=== PATIENT | female | born 1990 | race African-American/Black ===

== ENCOUNTER 2020-05-01 11:20 | Inpatient (IN) | payer OTHER ==
--- OUTSIDE RECORDS SUMMARY | 2020-05-01 11:51 | XMS ---
:1990 [facility] Providers Name Role Phone Edelmira Webster MD Unavailable Unavailable Tyesha Webster MD Unavailable Unavailable Tyesha Webster MD Unavailable Unavailable Tyesha Webster MD Unavailable Unavailable Tyesha Webster MD Unavailable Unavailable Tyesha Webster MD Unavailable Unavailable Koci Unavailable Unavailable Tyesha Webster MD Unavailable Unavailable Tyesha Webster MD Unavailable Unavailable Tyesha Webster MD Unavailable Unavailable Tyesha Webster MD Unavailable Unavailable Tyesha Webster MD Unavailable Unavailable Tyesha Webster MD Unavailable Unavailable MD Jordyn Unavailable Unavailable MD Jordyn Unavailable Unavailable MD Jordyn Unavailable Unavailable MD Jordyn Unavailable Unavailable MD Jordyn Unavailable Unavailable Re-disclosure Warning The records that you are about to access may contain information from federally- assisted alcohol or drug abuse programs. If such information is present, then the following federally mandated warning applies: This information has been disclosed to you from records protected by federal confidentiality rules (42 CFR part 2). The federal rules prohibit you from making any further disclosure of this information unless further disclosure is expressly permitted by the written consent of the person to whom it pertains or as otherwise permitted by 42 CFR part 2. A general authorization for the release of medical or other information is NOT sufficient for this purpose. The Federal rules restrict any use of the information to criminally investigate or prosecute any alcohol or drug abuse patient.The records that you are about to access may contain highly sensitive health information, the redisclosure of which is protected by Article 27-F of the [facility] Public Health law. If you continue you may haveaccess to information: Regarding HIV / AIDS; Provided by facilities licensed or operated by the [facility] Office of Mental Health; or Provided by the [facility] Office for People With Developmental Disabilities. If such information is present, then the following [facility] mandated warning applies: This information has been disclosed to you from confidential records which are protected by state law. State law prohibits you from making any further disclosure of this information without the specific written consent of the person to whom it pertains, or as otherwise permitted by law. Any unauthorized further disclosure in violation of state law may result in a fine or half-way sentence or both. A general authorization for the release of medical or other information is NOT sufficient authorization for further disclosure. Encounters Encounter Providers Location Date Indications Data Source(s ) Outpatient Attender: Edelmira BOYCE 04/28/2020 RICHARD Webster MD 01:58:00 PM Hospital EDT Outpatient Attender: Edelmira BOYCE 04/18/2020 RICHARD Webster MD 03:19:33 PM Hospital EDT - 04/21/2020 11:59:00 PM EDT Patient discharged. Outpatient 04/16/2020 11:47:00 [facility] ([facility]) Outpatient 04/15/2020 10:32:00 [facility] ([facility]) Outpatient Attender: Edelmira BOYCE 04/11/2020 01:43:15 RICHARD Webster MD PM EDT - 04/14/2020 [facility] 11:59:00 PM EDT Patient discharged. Outpatient Attender: Edelmira PABLOMATTRI 2020 02:25:00 RICHARD Webster MD PM EDT - 2020 [facility] 11:59:00 PM EDT Patient discharged. Outpatient Attender: Edelmira CostaLABCLNMV 04/04/2020 03:05:55 [facility] Colton Webster MD PM EDT - 2020 [facility] 11:59:00 PM EDT Patient discharged. Outpatient Attender: Edelmira ICU-MATTRI 03/28/2020 03:20:34 RICHARD Webster MD PM EDT - 04/01/2020 [facility] 11:59:00 PM EDT Patient discharged. Outpatient 03/28/2020 10:00:00 [facility] 03/27/2020 11:49:00 [facility] ([facility]) Outpatient Attender: Terese ICU-MATTRDedra 03/25/2020 02:49:00 M GEMMA Chung KociAttender: Edelmira PM EDT - 03/25/2020 [facility] Darin LOCKETT 11:59:00 PM EDT Patient discharged. Outpatient Attender: Edelmira DE ANDA CL 03/14/2020 11:07:08 RICHARD Webster MD AM EDT - 03/17/2020 [facility] 11:59:00 PM EDT Patient discharged. Outpatient Attender: Edelmira BOYCE 03/03/2020 03:12:00 RICHARD Webster MD PM EDT - 03/03/2020 [facility] 11:59:00 PM EDT Patient discharged. Outpatient Attender: Edelmira BOYCE 02/18/2020 02:08:00 RICHARD Webster MD PM EDT - 02/18/2020 [facility] 11:59:00 PM EDT Patient discharged. Outpatient Attender: Edelmira JI 01/11/2020 02:27:00 RICHARD Webster MD PM EDT - 01/14/2020 [facility] 11:59:00 PM EDT Patient discharged. Outpatient Attender: Edelmira DE OLIVEIRA-VICKI 12/14/2019 06:16:00 RICHARD Webster MD PM EDT - 12/18/2019 [facility] 11:59:00 PM EDT Patient discharged. Outpatient Attender: Edelmira CostaLAB 12/11/2019 02:56:00 PM RICHARD Webster MDReferrer: EDT [facility] Edelmira Webster MD Admission cancelled. Disregard status an d admitted date. Outpatient Attender: Edelmira JI 11/19/2019 03:16:00 RICHARD Webster MD PM EDT - 11/19/2019 [facility] 11:59:00 PM EDT Patient discharged. Outpatient Attender: Edelmira DE OLIVEIRA-ANTE PAR 10/25/2019 08:43:00 RICHARD Webster MD AM EDT - 10/25/2019 [facility] 11:59:00 PM EDT Patient discharged. Outpatient Attender: Edelmira CostaOBGYN CL 10/01/2019 03:37:00 RICHARD Webster MD PM EDT - 10/01/2019 [facility] 11:59:00 PM EDT Patient discharged. Outpatient Attender: Edelmira CostaRADCLNMV 09/17/2019 10:51:00 RICHARD Webster MD AM EST - 09/17/2019 [facility] 11:59:00 PM EST Patient discharged. Outpatient Attender: Juan YENNIFER-OCCP HL 08/07/2019 03:35:00 RICHARD Cobb MD PM EST - 08/07/2019 Hos pital 11:59:00 PM EST Patient discharged. Medications Medication Brand Start Product Dose Route Administrative Pharmacy [facility] Indications Reaction Description Data Name Date Form Instructions Instructions Source(s) Docusate Colace [id number] active [facility] Sodium 100 100 mg 2019 {cap( Health MG Oral oral 03:36: s)} System Capsule capsul 38 PM [Colace] e EDT Colace 100 mg oral capsule Medication should be taken with plenty o f water. ferrous FeroSul 325 04/14/2020 1 {tab(s)} K72894 active FeroSul [facility] sulfate 325 mg (65 mg 03:36:16 PM Health MG Oral elemental EDT System Tablet iron) oral FeroSul 325 tablet mg (65 mg elemental iron) oral tablet Check with your doctor before becoming p regnant.Do not chew, break, or crush.May discolor urine or feces. Trevor [id number] 10/01/2019 1 {tab(s)} F40824 active Classic [facility] 04:09:01 PM Health oral EDT System tablet May discolor urine or feces.Take with fo od or milk. Trevor [id number] 10/01/2019 1 {tab(s)} O85261 active Classic [facility] 04:09:01 PM Health oral EDT System tablet May discolor urine or feces.Take with fo od or milk. Insurance Providers Payer name Policy type / Policy ID Covered Covered alliance party's Policy Plan Coverage type alliance party ID relationship to Diaz Information diaz [facility] [id number] - [id number] [facility] [id number] Commercial [id number] 1 [id number] Occupational Commercial [id number] 1 [id number] Health NR [facility] 1199 Commercial [id number] Occupational Commercial [id number] 1 [id number] Health NR Fin Assist Fee Self Pay 1 Code 3 Fin Assist Fee Self Pay 1 Code 3 Self Pay Self Pay SELF PAY 1 SELF PAY Self Pay Self Pay SELF PAY 1 SELF PAY Problems, Conditions, and Diagnoses Code Display Name Description Problem Type Effective Data Dates Source(s) Z34.90 Encounter for Diagnosis 04/28/2020 [facility] supervision of 01:58:00 PM [facility] , unspecified, unspecified trimester Z34.93 Encounter for Encounter for Diagnosis 04/21/2020 [facility] supervision of supervision of normal 03:27:00 [facility] normal in third EDT Hospit al , trimester unspecified, third trimester Z33.1 state, Fewer than 24 weeks Diagnosis 04/14/2020 [facility] incidental gestation of 03:08:00 PM [facility] O43.899 Other placental Abnormal placenta, Diagnosis 2020 HS - New disorders, antepartum 02:25:[address] [facility] trimester Z3A.37 37 weeks 37 weeks gestation of Diagnosis 2020 [facility] gestation of 02:25:00 PM [facility] O35.8XX0 Maternal care Abnormal Diagnosis 04/01/2020 [facility] - N ew for other echocardiography 02:32:00 PM Linda e (suspected) affecting antepartum EDT Hos pital care of mother abnormality and damage, not applicable or unspecified O36.93X0 Maternal care and placental Diagnosis 04/01/2020 S - New for problem affecting 02:32:00 PM [place] le problem, management of mother EDT Hosp ital unspecified, in third trimester third trimester, not applicable or unspecified 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.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 S - New for (suspected) fetus affecting 02:32:00 PM Shahbaz helchance chromosomal management of mother EDT Hos pital abnormality in fetus, not applicable or unspecified Z3A.35 35 weeks 35 weeks gestation of Diagnosis 03/25/2020 S - New gestation of 02:49:00 PM [place] [facility] Z3A.21 21 weeks 21 weeks gestation of Diagnosis 12/18/2019 S - New gestation of 01:16:00 PM [place] [facility] Z36.89 Encounter for Encounter for routine Diagnosis 10/25/2019 [facility] - New other specified ultrasound 08:43:00 AM [facility] EDT [facility] screening Z34.91 Encounter for Encounter for Diagnosis 09/17/2019 S - [place] unt supervision of supervision of normal 10:51:00 A [facility] [place] normal in it al , trimester unspecified, first trimester Z3A.08 8 weeks 8 weeks gestation of Diagnosis 09/17/2019 S - [place] gestation of 10:51:00 AM [facility] Surgeries/Procedures Procedure Description Date Indications Data Source(s) Venipuncture 2020 [facility] 11:58:59 AM EDT System - 2020 01:00:31 PM EDT Hepatitis B Surface 2020 [facility] Health Antigen Neut 11:58:59 AM EDT System - 2020 12:07:24 PM EDT Hepatitis B surface 2020 [facility] antigen level 11:58:00 AM EDT System (procedure) - 2020 12:00:00 PM EDT Chlamydia 2020 [facility] Trachomatis/Neisseria 11:25:00 AM EDT Sys tem Gonorrhea RNA,TMA - 2020 11:27:00 AM EDT Venipuncture 01/15/2020 [facility] 12:16:06 PM EDT System - 01/15/2020 02:00:11 PM EDT Venipuncture 12/11/2019 [facility] 03:23:48 PM EDT System - 12/11/2019 05:00:13 PM EDT Alpha Fetoprotein, 12/11/2019 [facility] Maternal Triple 03:23:48 PM EDT System - 12/11/2019 03:25:40 PM EDT zzAlpha Fetoprotein, 12/11/2019 [facility] Maternal Serum 03:23:00 PM EDT System - 12/11/2019 03:26:00 PM EDT US OB 1st Trimester 09/18/2019 [facility] (less than 14 weeks) US 03:20:00 PM EST S ystem OB 1st Trimester (less - 09/18/2019 than 14 weeks) 03:20:00 PM EST Venipuncture 09/17/2019 [facility]al th 12:00:20 PM EST System - 09/17/2019 01:00:21 PM EST Cystic Fibrosis Screen 09/17/2019 [facility] 12:00:20 PM EST System - 09/17/2019 12:02:00 PM EST Aerobic Culture, Urine 09/17/2019 [facility] 11:32:00 AM EST System - 09/17/2019 11:32:00 AM EST Results ID Date Data Source [id number] 04/27/2020 02:06:30 AM EDT [facility] System Name Value Range Interpretation Description Data Sup porting Code Source(s) Document(s ) Leukocytes 5.5 Normal (applies WBC Count [facility] [#/volume] in {10^3_uL to non-numeric Health Unspecified } results) System specimen by Automated count Erythrocytes 4.24 Normal (applies RBC Count [facility] [#/volume] in {10^6_uL to non-numeric Health Blood by } results) System Automated count Erythrocyte mean 86.8 fl Normal (applies MCV [facility] corpuscular to non-numeric Health volume [Entitic results) System volume] by Automated count Hemoglobin 11.4 Below low normal Hemoglobin [facility] [Mass/volume] in {gm/dL} Health Blood System Erythrocyte mean 26.9 pg Below low normal MCH [facility] corpuscular Health hemoglobin System [Entitic mass] by Automated count Hematocrit 36.8 % Below low normal Hematocrit [facility] [Volume Health Fraction] of System Blood Erythrocyte mean 31.0 Normal (applies MCHC [facility] corpuscular {gm/dL} to non-numeric Health hemoglobin results) System concentration [Mass/volume] by Automated count Platelets 259 Normal (applies Platelet [facility] [#/volume] in {10^3_uL to non-numeric Count Health Plasma by } results) System Automated count Erythrocyte 13.2 % Normal (applies RDW-CV [facility] distribution to non-numeric Health width [Entitic results) System volume] by Automated count NRBC# 0.00 Normal (applies NRBC # [facility] {10^3_uL to non-numeric Health } results) System Platelet mean 10.7 fl Normal (applies MPV [facility] volume [Entitic to non-numeric Health volume] in Blood results) System by Automated count Nucleated 0.0 Normal (applies NRBC % [facility] erythrocytes {/100_WB to non-numeric Health [#/volume] in C} results) System Body fluid ID Date Data Source [id number] 04/27/2020 02:06:30 AM EDT [facility] Name Value Range Interpretation Code Description Data Karishma rce(s) Supporting Document(s ) HbA1C 5.1 % Normal (applies to HbA1C [facility] Health non-numeric results) System ID Date Data Source [id number] 04/27/2020 02:06:30 AM EDT [facility] Name Value Range Interpretation Description Data Sup porting Code Source(s) Document(s ) Cholesterol 124 Normal (applies Cholesterol, [facility] [Mass/volume] mg/dl to non-numeric Serum Health Syst em in Serum or results) Plasma <200 mg/ft=xflozevxy451-170 mg/dl=border line>240 mg/dl=elevated Cholesterol in HDL 51.0 mg/dL Normal (applies HDL Cholestero l, [facility] [Mass/volume] in to non-numeric Serum Health S yste Serum or Plasma results) Triglyceride 50 mg/dl Normal (applies Triglycerides, [facility] [Mass/volume] in to non-numeric Serum Health S yste Serum or Plasma results) Optimal = < 100 mg/dLBoderline High = 15 0 - 199 mg/dLHigh = 200 - 499 mg/dLVery High = > 500 mg/dL CHDRisk 2.43 Normal (applies to non-numeric CHD Risk [facility] results) Lowest <2.9Low 3.0 - 3.6Moderate 3 .7 - 4.6High 4.7 - 5.6Highest >=5.7 Cholesterol in VLDL 10 Normal (applies to VLDL, Serum [facility] [Mass/volume] in non-numeric System Serum or Plasma results) Cholesterol in LDL 63 mg/dL Normal (applies to Low Density [facility] [Mass/volume] in non-numeric Lipoprotein, System Serum or Plasma results) Calculated OPTIMAL: LESS THAN 100 mg/dLNEAR OPTIMAL : 100 - 129 mg/dLBODERLINE HIGH: 130 - 150 mg/dL ID Date Data Source [id number] 04/27/2020 02:06:30 AM EDT [facility] Name Value Range Interpretation Description Data Sup porting Code Source(s) Document(s ) Bilirubin.total 0.5 Normal (applies Bilirubin, [facility] [Mass/volume] in mg/dl to non-numeric Serum Total Health Serum or Plasma results) System Albumin 4.4 Normal (applies Albumin, [facility] [Mass/volume] in {gm/dl} to non-numeric Serum Health Serum or Plasma results) System Aspartate 12 Normal (applies Aspartate [facility] aminotransferase {IU/L} to non-numeric Transaminase, Heal th [Enzymatic results) Serum System activity/volume] in Serum or Plasma by With P-5'-P Alanine 6 Below low normal Alanine [facility] aminotransferase {IU/L} Aminotransfer Health [Enzymatic ase, Serum System activity/volume] in Serum or Plasma TotalProtein 7.0 Normal (applies Total Protein [facility] mg/dl to non-numeric Health results) System DirectBilirubin 0.1 Normal (applies Direct [facility] mg/dl to non-numeric Bilirubin Health results) System Alkaline 55 Normal (applies Alkaline [facility] phosphatase {IU/L} to non-numeric Phosphatase, Health isoenzymes results) Serum System [Enzymatic activity/volume] in Serum or Plasma by Heat stability ID Date Data Source [id number] 04/27/2020 02:06:30 AM EDT [facility] Name Value Range Interpretation Description Data Sup porting Code Source(s) Document(s ) Potassium 4.1 Normal (applies Potassium, [facility] [Mass/volume] mmol/L to non-numeric Serum Health Syst em in Serum or results) Plasma Sodium 139 Normal (applies Sodium, Serum [facility] [Moles/volume mmol/L to non-numeric Health Syst em ] in Serum or results) Plasma Chloride 104 Normal (applies Chloride, [facility] [Moles/volume mmol/L to non-numeric Serum Health Syst em ] in Serum or results) Plasma Urea nitrogen 9 mg/dl Normal (applies Blood Urea [facility] [Mass/volume] to non-numeric Nitrogen, Health Syst em in Serum or results) Serum Plasma Carbon 29.2 Normal (applies CO2, Serum [facility] dioxide, mmol/L to non-numeric Health System total results) [Moles/volume ] in Serum or Plasma Glucose 82 mg/dL Normal (applies Glucose, Serum [facility] [Mass/volume] to non-numeric Health Syst em in Serum or results) Plasma Creatinine 0.69 Normal (applies Creatinine, [facility] [Mass/volume] mg/dl to non-numeric Serum Health Syst em in Serum or results) Plasma Anion gap in 5.80 Normal (applies Anion Gap [facility] Serum or mmol/L to non-numeric Health System Plasma results) Calcium 9.5 Normal (applies Calcium, Total [facility] [Mass/volume] mg/dl to non-numeric Serum Health Syst em in Serum or results) Plasma ID Date Data Source [id number] 04/27/2020 02:06:30 AM EDT [facility] Name Value Range Interpretation Description Data Sup porting Code Source(s) Document(s ) NIL 0.02 {IU/mL} Normal (applies NIL [facility] to non-numeric Health results) System Quantif NegativeNegative Normal (applies Quantiferon-T [facility] annabelle-TB test result. M. to non-numeric B Gold. Health Gold. tuberculosis results) System complex infectionunlikely. Mitogen > 10.00 Normal (applies Mitogen-NIL [facility] -NIL to non-numeric Health results) System TB1-NIL 0.00 {IU/mL} Normal (applies TB1-NIL [facility] to non-numeric Health results) System TB2-NIL < 0.00 Normal (applies TB2-NIL [facility] to non-numeric Health results) System The Nil tube value reflects the backgrou nd interferongamma immune response of the patient's blood sample.This value has be en subtracted from the patient'sdisplayed TB and Mitogen results.Lower than expected results with the Mitogen tube prevent false-negative Quantiferon readings byde tecting a patient with a potential immunesuppressive condition and/or subop timal pre-analyticalspecimen handling.The TB1 Antigen tube is coated with theM. tuberc ulosis-specific antigens designed to elicitresponses from TB antigen primed C D4+ helperT-lymphocytes.The TB2 Antigen tube is coated with theM. tuberculosis-specif ic antigens designed to elicitresponses from TB antigen primed CD4+ helper and CD8+cy totoxic T-lymphocytes.For additional information, please refer [email or web address](This link is being provided for informational/educ ational purposes only.)Test Performed at:[facility], [place], [place] Gasper Yuen M.D. ID Date Data Source [id number] 04/27/2020 02:06:30 AM EDT [facility] System Name Value Range Interpretation Description Data Sup porting Code Source(s) Document(s ) HepatitisBSurf Non Normal (applies Hepatitis B [facility] aceAntigen. ReactiveReferen to non-numeric [facility] ce Range: Non results) Antigen. System ReactiveTest Performed at:[facility], [place], [place] Gasper Yuen M.D. HepatitisBSurf DNRTest Normal (applies Hepatitis B [facility] aceAntigenNeut Performed to non-numeric [facility] at:[employer] results) Antigen Neut [employer], [place], [place] [address]LkvlcjztJoseline Yuen M.D. ID Date Data Source [id number] 04/27/2020 02:06:30 AM EDT [facility] System Name Value Range Interpretation Code Description Data Karishma rce(s) Supporting Document(s ) Hepatitis > 1000 Normal (applies to Hepatitis B [facility] BSurfaceA non-numeric [facility] ntibody. results) Antibody. Patient has immunity to hepatitis B viru s.For additional information, please refer [email or web address](This link is being provided for informational/educational purposes only) .Test Performed at:[facility], [place] [address] Iglesia Yuen M.D. ID Date Data Source [id number] 04/27/2020 02:06:30 AM EDT [facility] Name Value Range Interpretation Description Data Sup porting Code Source(s) Document(s ) MumpsIgGAntibody 64.60 Normal (applies Mumps IgG [facility] AU/mL to non-numeric Antibody Health results) System AU/mL Interpretation<9.0 0 Negative9.00-10.99 Equivocal>10.99 Positiv eA positive result indicates that the patient has antibody tomumps virus. It does not differentiate between an active orpast infection. The clinical diagnosis must b e interpretedin conjunction with clinical signs and symptoms of thepatient.Test Pe rformed at:[facility], [place], [place] [address]Qlgedi Yuen M.D. ID Date Data Source [id number] 04/27/2020 02:06:30 AM EDT [facility] System Name Value Range Interpretation Description Data Sup porting Code Source(s) Document(s ) VaricellaResultValue 2636.00 Normal (applies Varicella [facility] {index} to non-numeric Result Value Health results) System Index Interpretation<135.0 0 Negative - Antibody not yoatkkwy296.00-164.99 Equivocal>or =165.00 Positive - Antibody detectedA positive result indicates that the patient has antibodyto VZV but does not differentiate between an active orpast i nfection. The clinical diagnosis must be interpretedin conjunction with the clini jayme signs and symptoms ofthe patient. This assay reliably measures immunity dueto p revious infection but may not be sensitive enough todetect antibodies induced by va ccination. Thus, anegative result in a vaccinated individual does notnecessaril y indicate susceptibility to VZV infection.A more sensitive test for vaccination-devaughn crystal immunityis Varicella Zoster Virus Antibody Immunity Screen, ACIF.Test Perf ormed at:[facility], [place], [place] [address]Omveycarflower valerio M.D. ID Date Data Source [id number] 04/27/2020 02:06:30 AM EDT [facility] System Name Value Range Interpretation Description Data Sup porting Code Source(s) Document(s ) RubeolaABIgGResultValue > Normal (applies Rubeola AB [facility] 300.00 to non-numeric IgG Result Health results) Value System AU/mL Interpretation----- <13.50 Ilyrjkyn15.50-16.49 Equivocal>16.49 PositiveA positive result indicates that the patient has antibody tomeasles virus. It does not differentiate between an active orpast infection. The clinical diagnosis must be interpretedin conjunction with clinical signs and symp toms of thepatient.For additional information, please refer [email or web address](This link is being provided for informational /educationalpurposes only.)Test Performed at:[facility], [place], [place] Gasper Yuen M.D. ID Date Data Source [id number] 04/27/2020 02:06:30 AM [facility]T [facility] Name Value Range Interpretation Code Description Data Karishma rce(s) Supporting Document(s ) Rubella 3.98 Normal (applies to Rubella [facility] {index} non-numeric Health System results) Index Interpretation<0.90 Not consistent with immunity0.90-0.99 Equivocal>or=1.00 Consistent with immu nityThe presence of rubella IgG antibody suggestsimmunization or past or current infection with rubellavirus.Test Performed at:[facility], [place], [place] [address]LvjiqfabIglesia Yuen M.D. ID Date Data Source [id number] 04/27/2020 02:06:30 AM EDT [facility] System Name Value Range Interpretation Description Data Sup porting Code Source(s) Document(s ) N.Gono Not Normal (applies N. Gonorrhea [facility] rrheab DetectedReference to non-numeric by [facility] Health yLCR Range: Not results) System DetectedThis test was performed using the APTIMA COMBO2(R) Assay(GEN-PROBE(R)) .For additional information, please refer tohttp://education. [employer] m/faq/EMO263(This link is being provided for informational/educa tionalpurposes only)Test Performed at:[facility], [place], [place] [address]DfbujysrIglesia Yuen M.D. C.Trac Not Normal (applies C. [facility] homati DetectedReference to non-numeric [facility] sAmp Range: Not Detected results) Amp System ID Date Data Source [id number] 04/27/2020 02:06:30 AM EDT [facility] Name Value Range Interpretation Description Data Source(s ) Supporting Code Document(s ) Reagin Ab Non-react Normal (applies to RPR. [facility] [Presence] roland non-numeric Health System in Serum by results) RPR ID Date Data Source [id number] 04/27/2020 02:06:30 AM EDT [facility] Name Value Range Interpretation Code Description Data Karishma rce(s) Supporting Document(s ) %HbA1C 4.76 % Normal (applies to %HbA1C [facility] non-numeric results) Health Sy stem tHbWB 3018.20 Normal (applies to tHbWB [facility] non-numeric results) Health Sy stem [id number] 85.95 Normal (applies to PdG2GRd [facility] non-numeric results) Health Sy stem ID Date Data Source [id number] 04/27/2020 02:06:30 AM EDT [facility] Name Value Range Interpretation Code Description Data Karishma rce(s) Supporting Document(s ) Lead.. < 1 Normal (applies to Lead.. [facility] non-numeric results) Health Sy stem Analysis was performed by Inductively Co upled Plasma MassSpectrometry (ICPMS).Test Performed at:[facility], [place], [place] [address]WzsvnubaIglesia Yuen M.D. ID Date Data Source [id number] 04/27/2020 02:06:30 AM EDT [facility] Name Value Range Interpretation Description Data Sup porting Code Source(s) Document(s ) VaricellaResultValue 2628.00 Normal (applies Varicella [facility] {index} to non-numeric Result Value Health results) System Index Interpretation<135.0 0 Negative - Antibody not dlozfoha696.00-164.99 Equivocal>or =165.00 Positive - Antibody detectedA positive result indicates that the patient has antibodyto VZV but does not differentiate between an active orpast i nfection. The clinical diagnosis must be interpretedin conjunction with the clini jayme signs and symptoms ofthe patient. This assay reliably measures immunity dueto p revious infection but may not be sensitive enough todetect antibodies induced by va ccination. Thus, anegative result in a vaccinated individual does notnecessaril y indicate susceptibility to VZV infection.A more sensitive test for vaccination-devaughn crystal immunityis Varicella Zoster Virus Antibody Immunity Screen, ACIF.Test Perf ormed at:[facility], [place], [place] [address]HdgrvkttIglesia valerio M.D. ID Date Data Source [id number] 04/27/2020 02:06:30 AM EDT [facility] System Name Value Range Interpretation Code Description Data Karishma rce(s) Supporting Document(s ) Rubella 3.99 Normal (applies to Rubella [facility] {index} non-numeric Health System results) Index Interpretation<0.90 Not consistent with immunity0.90-0.99 Equivocal>or=1.00 Consistent with immu nityThe presence of rubella IgG antibody suggestsimmunization or past or current infection with rubellavirus.Test Performed at:[facility], [place], [place] [address]GpowxmiuIglesia Yuen M.D. ID Date Data Source [id number] 04/27/2020 02:06:30 AM EDT [facility] System Name Value Range Interpretation Description Data Sup porting Code Source(s) Document(s ) Human NONREACTIVE Normal (applies HIV test, [facility] immunodeficien Normal Range: to non-numeric Routine Health cy virus Non results) (antigen and System antibody titer ReactiveNegativ antibody measurement e for HIV-1 testing) (procedure) antigen and HIV-1/HIV-2 antibodies. No laboratory evidence of HIV infection.Test was performed at [facility], [address] [place] [address]. ID Date Data Source [id number] 04/27/2020 02:06:30 AM EDT [facility] Name Value Range Interpretation Description Data Sup porting Code Source(s) Document(s ) AntibodyScreen Negative Normal (applies Antibody [facility] to non-numeric Screen Health results) System Type B Normal (applies Type [facility] to non-numeric Health results) System D Ab [Titer] in Positive Normal (applies Rh [facility] Serum or Plasma to non-numeric Health results) System ID Date Data Source [id number] 04/27/2020 02:06:30 AM EDT [facility] Name Value Range Interpretation Code Description Data Karishma rce(s) Supporting Document(s ) Hematocri 33.0 % Below low normal Hematocrit. [facility] t. Health System hemoglobi 11.4 g/dL Below low normal hemoglobin. [facility] n. [facility] RBC. 3.94 Normal (applies to RBC. [facility] {Mill/mcL} non-numeric Health System results) RDW. 13.6 % Normal (applies to RDW. [facility] non-numeric Health System results) Test Performed at:[facility] [place] Gasper Yuen M.D. MCH. 28.9 pg Normal MCH. [facility] (applies to Health non-numeric System results) MCV. 83.8 fl Normal MCV. [facility] (applies to Health non-numeric System results) HemoglobinA 97.2 Normal Hemoglobin A [facility] {Percent} (applies to Health non-numeric System results) HemoglobinS 0.0 Normal Hemoglobin S [facility] {Percent} (applies to Health non-numeric System results) HemoglobinElectrophoresisInterpre SEE NOTENo Normal Hemog lobin [facility] tation Hemoglobin (applies to Electrophoresis Health variant non-numeric Interpretation System detected. results) HemoglobinA2 1.8 Normal Hemoglobin A2 [facility] {Percent} (applies to Health non-numeric System results) HemoglobinC 0.0 Normal Hemoglobin C [facility] {Percent} (applies to Health non-numeric System results) Hem.Variant 0.0 Normal Hem. Variant [facility] {Percent} (applies to Health non-numeric System results) Test Performed at:[facility], [place], [place] Gasper Yuen M.D. Hemoglobin F < 1.0 Normal (applies to Hemoglobin, [facility] [Mass/volume] in Blood non-numeric Syste m by Electrophoresis results) ID Date Data Source [id number] 04/27/2020 02:06:30 AM EDT [facility] sh[facility]en System Name Value Range Interpretation Description Data Sup porting Code Source(s) Document(s ) Leukocytes 8.5 Normal (applies WBC Count [facility] [#/volume] in {10^3_uL to non-numeric Health Unspecified } results) System specimen by Automated count Hemoglobin 11.1 Below low normal Hemoglobin [facility] [Mass/volume] in {gm/dL} Health Blood System Erythrocytes 4.05 Normal (applies RBC Count [facility] [#/volume] in {10^6_uL to non-numeric Health Blood by } results) System Automated count Hematocrit 34.8 % Below low normal Hematocrit [facility] [Volume Health Fraction] of System Blood Erythrocyte mean 31.9 Below low normal MCHC [facility] corpuscular {gm/dL} Health hemoglobin System concentration [Mass/volume] by Automated count Erythrocyte mean 27.4 pg Normal (applies MCH [facility] corpuscular to non-numeric Health hemoglobin results) System [Entitic mass] by Automated count Erythrocyte mean 85.9 fl Normal (applies MCV [facility] corpuscular to non-numeric Health volume [Entitic results) System volume] by Automated count Erythrocyte 13.7 % Normal (applies RDW-CV [facility] distribution to non-numeric Health width [Entitic results) System volume] by Automated count Platelets 302 Normal (applies Platelet Count [facility] [#/volume] in {10^3_uL to non-numeric Health Plasma by } results) System Automated count Monocytes 0.8 Normal (applies Monocyte # [facility] [#/volume] in {10^3_uL to non-numeric Health Blood by Manual } results) System count Eosinophils 0.07 Normal (applies Eosinophil # [facility] [#/volume] in {10^3_uL to non-numeric Health Blood } results) System Platelet mean 10.5 fl Above high MPV [facility] volume [Entitic normal Health volume] in Blood System by Automated count Neutrophils 5.5 Normal (applies Neutrophil # [facility] [#/volume] in {10^3_uL to non-numeric Health Body fluid } results) System Lymphocyte 2.0 Normal (applies Lymphocyte # [facility] percent {10^3_uL to non-numeric Health differential } results) System count (procedure) Basophils 0.05 Normal (applies Basophil # [facility] [#/volume] in {10^3_uL to non-numeric Health Blood by } results) System Automated count Neutrophils/100 65.2 % Normal (applies Neutrophil % Eric marry leukocytes in to non-numeric Health Blood by results) System Automated count Monocytes/100 9.0 % Normal (applies Monocyte % [facility] leukocytes in to non-numeric Health Blood results) System Lymphocytes 23.9 % Normal (applies Lymphocyte % [facility] [#/volume] in to non-numeric Health Blood by results) System Automated count Eosinophils/100 0.8 % Normal (applies Eosinophil % Eric marry leukocytes in to non-numeric Health Unspecified results) System specimen Basophils/100 0.6 % Normal (applies Basophil % [facility] leukocytes in to non-numeric Health Unspecified results) System specimen by Manual count ImmatureGranuloc 0.04 Normal (applies Immature [facility] ytes# {10^3_uL to non-numeric Granulocytes # Health } results) System Nucleated 0.0 Normal (applies NRBC % [facility] erythrocytes {/100_WB to non-numeric Health [#/volume] in C} results) System Body fluid ImmatureGranuloc 0.5 % Normal (applies Immature [facility] ytes% to non-numeric Granulocytes % Health results) System NRBC# 0.00 Below low normal NRBC # [facility] {10^3_uL Health } System ID Date Data Source [id number] 04/27/2020 02:06:30 AM EDT [facility] Name Value Range Interpretation Description Data Sup porting Code Source(s) Document(s ) Method. see noteThe Normal (applies Method. [facility] mutations are to non-numeric Health detected by results) System multiplex-andre ymerasechain reaction (PCR) amplification of specific CFgene regions, followed by nucleotide sequence analysison a massively parallel sequencing platform. Althoughrare, false positive or false negative results mayoccur. All results should be interpreted in the contextof clinical findings, relevant history, and otherlaborato ry data. CFCarrierScre see Normal (applies CF Carrier [facility] en noteNEGATIVE, to non-numeric Screen Health NONE OF THE results) System MUTATIONS LISTEDBELOW WERE DETECTED Ethinicity N/P Normal (applies Ethinicity [facility] to non-numeric Health results) System Interpretatio see noteThis Normal (applies Interpretation Mo [facility] n result does to non-numeric Health not rule out results) System the presence of amutation or a diagnosis of cystic fibrosis disease(CF). The risk for mutations that cause CF otherthan the ones tested depends greatly on familyhistory , clinical presentation, and ethnicity.Jolene nce of Having a CF MutationEthni c Group Detection Before After NegativeRate Test ResultAshkena zi Pentecostalism 94% 1 in 24 1 in 400Non-Hispan ic 88% 1 in 25 1 in 208CaucasianH ispanic-Ameri can 72% 1 in 46 1 in 164African-Am erican 65% 1 in 65 1 in 186Asian-Amer ican 49% 1 in 94 1 in 184Other insufficient data available Mutations/Andre SEE TEXT see Normal (applies Mutations/Polym M [facility] ymorphisms [id number] to non-numeric orphisms Health (c.254G>A) results) System R334W (c.1000C>T)39 4delTT (c.262delTT) R347H (c.1040G>A)R1 17H (c.350G>A) R347P (c.1040G>C)62 1+1 G>T (c.489+1G>T) A455E (c.1364C>A)71 1+1 G>T (c.579+1G>T) 1507del (c.1519delATC )1078delT (c.948delT) D140wgz (c.1521delCTT )V520F (c.1558G>T) R553X (c.1657C>T)17 17-1 G>A (c.1585-1G>A) R560T (c.1679G>C)G5 42X (c.1624G>T) 1898+1 G>A (c.1766+1G>A) S549N (c.1646G>A) 2183AA>G (c.2051delAAi nsG)S549R (c.1645A>C or c.1647T>G) 2184delA (c.2052delA)G 551D (c.1652G>A) 2789+5 G>A (c.2657+5G>A) 3120+1 G>A (c.2988+1G>A) T6926L (c.3846G>A)R1 162X (c.3484C>T) Q9916W (c.3909C>G)36 59delC (c.3528delC)3 849+10kb C>T (C.3717+58229 C>T)3876delA (c.3744delA)3 905insT (c.3773insT)T his assay detects thirty-two mutations, including thetwenty-thr ee core mutations recommended by the AmericanColle ge of Medical Genetics (ACMG) and the AmericanCongr ess of Obstetricians and Gynecologists (ACOG) forpopulation -based CF carrier screening. In additionto the ACMG/ACOG panel, this assay detects nineadditiona l mutations. While these mutations are rarein the [place] population, the scientific and medicallitera ture indicates that these mutations are notbenign polymorphisms . The status of the intron 9(formerly intron 8) polyT tract is reported onlywhen the R117H mutation is detected. Reviewer SEE TEXT see Normal (applies Reviewer Lianna Hilton to non-numeric Health n results) System Kiki, Ph.D.,[facility] alexandru, Molecular GeneticsHealt care providers, please contact your local [facility] genetic counselor or call [employer]( [phone]) for assistance with interpretatio n ofthese results.The analytical performance characteristi cs of thisassay [facility] [place], [place]. The modifications have not been cleared or approved by the FDA. Thisassay has been validated pursuant to the Siomara ns and is used for clinical purposes.For additional information, please refer tohttp://educ ation.[employer] /faq/cfscreen (This link is being provided for informational /educational purposes only.)This test was performed at:[facility] [address] [id number] Performed at:[facility], [address] [place] [id number] Wu M.D., Ph.D. ID Date Data Source [id number] 04/27/2020 02:06:30 AM EDT [facility] Name Value Range Interpretation Description Data Sup porting Code Source(s) Document(s ) HepatitisBSurf Non Normal (applies Hepatitis B [facility] aceAntigen. ReactiveReferen to non-numeric [facility] ce Range: Non results) Antigen. System Reactive HepatitisBSurf DNRTest Normal (applies Hepatitis B [facility] aceAntigenNeut Performed to non-numeric [facility] at:[facility] results) Antigen Neut System [facility], [place], [place] [address]Iglesia Yuen M.D. ID Date Data Source [id number] 04/27/2020 02:06:30 AM EDT [facility] Name Value Range Interpretation Description Data Sup porting Code Source(s) Document(s ) Sodium 138 Normal (applies Sodium, Serum [facility] [Moles/volume] in mmol/L to non-numeric Health Serum or Plasma results) System Carbon dioxide, 25.0 Normal (applies CO2, Serum [facility] total mmol/L to non-numeric Health [Moles/volume] in results) System Serum or Plasma Chloride 105 Normal (applies Chloride, [facility] [Moles/volume] in mmol/L to non-numeric Serum Health Serum or Plasma results) System Potassium 4.7 Normal (applies Potassium, [facility] [Mass/volume] in mmol/L to non-numeric Serum Health Serum or Plasma results) System Glucose 78 Normal (applies Glucose, [facility] [Mass/volume] in mg/dL to non-numeric Serum Health Serum or Plasma results) System TotalProtein 7.1 Normal (applies Total Protein [facility] mg/dl to non-numeric Health results) System Urea nitrogen 7 mg/dl Normal (applies Blood Urea [facility] [Mass/volume] in to non-numeric Nitrogen, Health Serum or Plasma results) Serum System Creatinine 0.60 Below low normal Creatinine, [facility] [Mass/volume] in mg/dl Serum Health Serum or Plasma System Alkaline 60 Normal (applies Alkaline [facility] phosphatase {IU/L} to non-numeric Phosphatase, Health isoenzymes results) Serum System [Enzymatic activity/volume] in Serum or Plasma by Heat stability Bilirubin.total 0.3 Normal (applies Bilirubin, [facility] [Mass/volume] in mg/dl to non-numeric Serum Total Health Serum or Plasma results) System DirectBilirubin 0.1 Normal (applies Direct [facility] mg/dl to non-numeric Bilirubin Health results) System Aspartate 15 Normal (applies Aspartate [facility] aminotransferase {IU/L} to non-numeric Transaminase, Heal th [Enzymatic results) Serum System activity/volume] in Serum or Plasma by With P-5'-P Albumin 4.3 Normal (applies Albumin, [facility] [Mass/volume] in {gm/dl} to non-numeric Serum Health Serum or Plasma results) System I.Phosphorus 3.2 Normal (applies I. Phosphorus [facility] mg/dl to non-numeric Health results) System Alanine 8 Normal (applies Alanine [facility] aminotransferase {IU/L} to non-numeric Aminotransfer Heal th [Enzymatic results) ase, Serum System activity/volume] in Serum or Plasma A/GRatio 1.54 Normal (applies A/G Ratio [facility] to non-numeric Health results) System Calcium 9.3 Normal (applies Calcium, [facility] [Mass/volume] in mg/dl to non-numeric Total Serum Health Serum or Plasma results) System Urate 2.3 Below low normal Uric Acid, [facility] [Mass/volume] in mg/dl Serum Health Serum or Plasma System Anion gap in Serum 8.00 Normal (applies Anion Gap Eric marry or Plasma mmol/L to non-numeric Health results) System Glomerular > 90 Normal (applies GFR [facility] filtration to non-numeric Health rate/1.73 sq results) System M.predicted [Volume Rate/Area] in Serum or Plasma by Creatinine-based formula (CKD-EPI) eGFR will provide clinicians with a more accurate indicator of renal function then the serum creatinine. The eGFR is automa tically calculated from an empiric formula (endorsed by the National Kidney Foundat ion) which incorporates age, sex, and race.Clinicians may notice surprisingly low GFR's with serum creatinine valueswithin normal range- particularly in elderly wo men (with low muscle mass).In the hospital setting, the eGFR should add an element of safety in drug dosing, in assessing the risk of IV contrast administration, and in assessing vascular risk.The NKF staging system is as follows:Normal: eGFR >90 with no kidney markersStage 1: eGFR >90 with kidney markers*Stage 2: eGFR 60- 89Stage 3: eGFR 30-59Stage 4: eGFR 15-29Stage 5: eGFR <15 (usually requir ing dialysis)*Markers include: Proteinuria, Hematuria, abnormal imaging-studies, or other blood or urine test abnormalities ID Date Data Source [id number] 04/27/2020 02:06:30 AM EDT [facility] Name Value Range Interpretation Description Data Sup porting Code Source(s) Document(s ) Quantif NegativeNegative Normal (applies Quantiferon-T [facility] annabelle-TB test result. M. to non-numeric B Gold. Health Gold. tuberculosis results) System complex infectionunlikely. Mitogen 6.63 {IU/mL} Normal (applies Mitogen-NIL [facility] -NIL to non-numeric Health results) System NIL 0.01 {IU/mL} Normal (applies NIL [facility] to non-numeric Health results) System TB1-NIL 0.00 {IU/mL} Normal (applies TB1-NIL [facility] to non-numeric Health results) System TB2-NIL 0.00 {IU/mL} Normal (applies TB2-NIL [facility] to non-numeric Health results) System The Nil tube value reflects the backgrou nd interferongamma immune response of the patient's blood sample.This value has be en subtracted from the patient'sdisplayed TB and Mitogen results.Lower than expected results with the Mitogen tube prevent false-negative Quantiferon readings byde tecting a patient with a potential immunesuppressive condition and/or subop timal pre-analyticalspecimen handling.The TB1 Antigen tube is coated with theM. tuberc ulosis-specific antigens designed to elicitresponses from TB antigen primed C D4+ helperT-lymphocytes.The TB2 Antigen tube is coated with theM. tuberculosis-specif ic antigens designed to elicitresponses from TB antigen primed CD4+ helper and CD8+cy totoxic T-lymphocytes.For additional information, please refer [email or web address] [email or web address]/faq/204(This link is being provided for informational/educ ational purposes only.)Test Performed at:[facility] [employer] [facility], [place], [place] [address]TduoatgwIglesia Yuen M.D. ID Date Data Source [id number] 04/27/2020 02:06:30 AM EDT [facility] Name Value Range Interpretation Description Data Sup porting Code Source(s) Document(s ) Deprecated NO GROWTH Aerobic [facility] Bacteria Culture, Urine Health System identified in Urine by Aerobe culture ID Date Data Source [id number] 04/27/2020 02:06:30 AM EDT [facility] Name Value Range Interpretation Description Data Sup porting Code Source(s) Document(s ) Leukocytes 13.5 Above high WBC Count [facility] [#/volume] in {10^3_uL normal Health Unspecified } System specimen by Automated count Erythrocytes 3.63 Below low normal RBC Count [facility] [#/volume] in {10^6_uL Health Blood by } System Automated count Hemoglobin 10.8 Below low normal Hemoglobin [facility] [Mass/volume] in {gm/dL} Health Blood System Hematocrit 32.9 % Below low normal Hematocrit [facility] [Volume Health Fraction] of System Blood Erythrocyte mean 29.8 pg Normal (applies MCH [facility] corpuscular to non-numeric Health hemoglobin results) System [Entitic mass] by Automated count Erythrocyte mean 90.6 fl Normal (applies MCV [facility] corpuscular to non-numeric Health volume [Entitic results) System volume] by Automated count Erythrocyte 13.0 % Normal (applies RDW-CV [facility] distribution to non-numeric Health width [Entitic results) System volume] by Automated count Erythrocyte mean 32.8 Below low normal MCHC [facility] corpuscular {gm/dL} Health hemoglobin System concentration [Mass/volume] by Automated count Platelets 242 Normal (applies Platelet Count [facility] [#/volume] in {10^3_uL to non-numeric Health Plasma by } results) System Automated count Platelet mean 11.5 fl Above high MPV [facility] volume [Entitic normal Health volume] in Blood System by Automated count Eosinophils 0.11 Normal (applies Eosinophil # [facility] [#/volume] in {10^3_uL to non-numeric Health Blood } results) System Monocytes 1.3 Above high Monocyte # [facility] [#/volume] in {10^3_uL normal Health Blood by Manual } System count Neutrophils 9.4 Above high Neutrophil # [facility] [#/volume] in {10^3_uL normal Health Body fluid } System Basophils 0.04 Normal (applies Basophil # [facility] [#/volume] in {10^3_uL to non-numeric Health Blood by } results) System Automated count Lymphocyte 2.4 Normal (applies Lymphocyte # [facility] percent {10^3_uL to non-numeric Health differential } results) System count (procedure) Neutrophils/100 70.0 % Normal (applies Neutrophil % Eric marry leukocytes in to non-numeric Health Blood by results) System Automated count Monocytes/100 9.5 % Normal (applies Monocyte % [facility] leukocytes in to non-numeric Health Blood results) System Eosinophils/100 0.8 % Normal (applies Eosinophil % Eric marry leukocytes in to non-numeric Health Unspecified results) System specimen Lymphocytes 18.1 % Below low normal Lymphocyte % [facility] [#/volume] in Health Blood by System Automated count Basophils/100 0.3 % Normal (applies Basophil % [facility] leukocytes in to non-numeric Health Unspecified results) System specimen by Manual count Nucleated 0.0 Normal (applies NRBC % [facility] erythrocytes {/100_WB to non-numeric Health [#/volume] in C} results) System Body fluid ImmatureGranuloc 1.3 % Above high Immature [facility] ytes% normal Granulocytes % Health System ImmatureGranuloc 0.17 Above high Immature [facility] ytes# {10^3_uL normal Granulocytes # Health } System NRBC# 0.00 Below low normal NRBC # [facility] {10^3_uL Health } System ID Date Data Source [id number] 04/27/2020 02:06:30 AM EDT [facility] Name Value Range Interpretation Description Data Source(s ) Supporting Code Document(s ) 1HrGlucos 97 {gm/dL} Normal (applies to 1 Hr Glucose [facility] non-numeric Health System results) Normal <130Borderline 130-140A bnormal >140 ID Date Data Source [id number] 04/27/2020 02:06:30 AM EDT [facility] Name Value Range Interpretation Description Data Sup porting Code Source(s) Document(s ) C.Tracho NO DETECTED Normal (applies C. Trachomatis [facility] matisAmp Reference to non-numeric Amp Health System Range: Not results) Detected N.Gonorr NO DETECTED Normal (applies N. Gonorrhea [facility]aby[facility] Reference to non-numeric by [facility] Range: Not results) Detected ID Date Data Source [id number] 04/27/2020 02:06:30 AM EDT [facility] Name Value Range Interpretation Description Data Sup porting Code Source(s) Document(s ) Bacteria Micro Result Normal (applies Culture [facility] identified in Final Culture to non-numeric Female Health Genital Reading results) Genital System specimen by Note::NEGATIVE Aerobe culture FOR NEISSERIA GONORRHEAOAENEG ATIVE FOR YEASTLIKE ORGANISMSPOSITI VE FOR GROUP B BETA HEMOLYTIC STREPTOCOCCI ColonyCount MODERATE [place] Count [facility] System XXX BETA HEMOLYTIC Organism [facility] microorganism STREPTOCOCCUS Health serotype GROUP B System [Identifier] in Isolate by Agglutination ID Date Data Source [id number] 04/27/2020 02:06:30 AM EDT [facility] Name Value Range Interpretation Description Data Sup porting Code Source(s) Document(s ) Reagin Ab Non-reactive Normal ([facility]lies [facility] to non-numeric Health ] in Methodology: results) System Serum by Nontreponemal RPR flocculation card test. ID Date Data Source [id number] 04/27/2020 02:06:30 AM EDT [facility] Name Value Range Interpretation Description Data Sup porting Code Source(s) Document(s ) Human NONREACTIVE The Normal (applies HIV test, [facility] re immunodeficien [place] HIV to non-numeric Routine Health cy virus 4th generation results) (antigen and System antibody titer HIV-1/2 antibody measurement Antigen/Antibod testing) (procedure) y combination is a chemiluminescen t Microparticle immunoassay(CMI A) for the simultaneous qualitative detection of HIV p24 antigen and HIV-1 and HIV-2 antibodies. The performance of this assay has not been clinically validated on patients less than 2 years old. Reference Range: NONREACTIVE . ID Date Data Source [id number] 04/27/2020 02:06:30 AM EDT [facility] Name Value Range Interpretation Description Data Sup porting Code Source(s) Document(s ) Type B Normal (applies Type [facility] to non-numeric Health results) System D Ab [Titer] in Positive Normal (applies Rh [facility] Serum or Plasma to non-numeric Health results) System AntibodyScreen Negative Normal (applies Antibody [facility] to non-numeric Screen Health results) System ID Date Data Source [id number] 04/27/2020 02:06:30 AM EDT [facility] Name Value Range Interpretation Description Data Sup porting Code Source(s) Document(s ) Leukocytes 12.5 Above high WBC Count [facility] [#/volume] in {10^3_uL normal Health Unspecified } System specimen by Automated count Erythrocytes 3.63 Below low normal RBC Count [facility] [#/volume] in {10^6_uL Health Blood by } System Automated count Hemoglobin 9.9 Below low normal Hemoglobin [facility] [Mass/volume] in {gm/dL} Health Blood System Hematocrit 31.3 % Below low normal Hematocrit [facility] [Volume Health Fraction] of System Blood Erythrocyte mean 86.2 fl Normal (applies MCV [facility] corpuscular to non-numeric Health volume [Entitic results) System volume] by Automated count Erythrocyte mean 27.3 pg Normal (applies MCH [facility] corpuscular to non-numeric Health hemoglobin results) System [Entitic mass] by Automated count Erythrocyte mean 31.6 Below low normal MCHC [facility] corpuscular {gm/dL} Health hemoglobin System concentration [Mass/volume] by Automated count Erythrocyte 13.4 % Normal (applies RDW-CV [facility] distribution to non-numeric Health width [Entitic results) System volume] by Automated count Platelet mean 12.3 fl Above high MPV [facility] volume [Entitic normal Health volume] in Blood System by Automated count Platelets 243 Normal (applies Platelet Count [facility] [#/volume] in {10^3_uL to non-numeric Health Plasma by } results) System Automated count Eosinophils 0.04 Below low normal Eosinophil # [facility] [#/volume] in {10^3_uL Health Blood } System Monocytes 1.3 Above high Monocyte # [facility] [#/volume] in {10^3_uL normal Health Blood by Manual } System count Neutrophils 8.6 Above high Neutrophil # [facility] [#/volume] in {10^3_uL normal Health Body fluid } System Lymphocyte 2.3 Normal (applies Lymphocyte # [facility] percent {10^3_uL to non-numeric Health differential } results) System count (procedure) Basophils 0.04 Normal (applies Basophil # [facility] [#/volume] in {10^3_uL to non-numeric Health Blood by } results) System Automated count Monocytes/100 10.6 % Normal (applies Monocyte % [facility] leukocytes in to non-numeric Health Blood results) System Neutrophils/100 69.0 % Normal (applies Neutrophil % Eric marry leukocytes in to non-numeric Health Blood by results) System Automated count Basophils/100 0.3 % Normal (applies Basophil % [facility] leukocytes in to non-numeric Health Unspecified results) System specimen by Manual count Eosinophils/100 0.3 % Normal (applies Eosinophil % Eric marry leukocytes in to non-numeric Health Unspecified results) System specimen ImmatureGranuloc 1.2 % Above high Immature [facility] ytes% normal Granulocytes % Health System Lymphocytes 18.6 % Below low normal Lymphocyte % [facility] [#/volume] in Health Blood by System Automated count ImmatureGranuloc 0.15 Above high Immature [facility] ytes# {10^3_uL normal Granulocytes # Health } System Nucleated 0.0 Normal (applies NRBC % [facility] erythrocytes {/100_WB to non-numeric Health [#/volume] in C} results) System Body fluid NRBC# 0.00 Below low normal NRBC # [facility] {10^3_uL Health } System ID Date Data Source [id number] 04/27/2020 02:06:30 AM EDT [facility] Name Value Range Interpretation Description Data Source(s ) Supporting Code Document(s ) Hepatiti NO-REACTI Normal (applies to Hepatitis B [facility] sBSurfac VE non-numeric [facility] eAntigen results) Antigen. . ID Date Data Source [id number] 04/27/2020 02:06:30 AM EDT [facility] Name Value Range Interpretation Description Data Sup porting Code Source(s) Document(s ) Potassium 4.6 Normal (applies Potassium, [facility] [Mass/volume] mmol/L to non-numeric Serum Health Syst em in Serum or results) Plasma Sodium 139 Normal (applies Sodium, Serum [facility] [Moles/volume mmol/L to non-numeric Health Syst em ] in Serum or results) Plasma Chloride 105 Normal (applies Chloride, [facility] [Moles/volume mmol/L to non-numeric Serum Health Syst em ] in Serum or results) Plasma Glucose 64 mg/dL Below low normal Glucose, Serum [facility] [Mass/volume] Health System in Serum or Plasma Carbon 23.0 Normal (applies CO2, Serum [facility] dioxide, mmol/L to non-numeric Health System total results) [Moles/volume ] in Serum or Plasma Creatinine 0.60 Below low normal Creatinine, [facility] [Mass/volume] mg/dl Serum Health System in Serum or Plasma Urea nitrogen 4 mg/dl Below low normal Blood Urea [facility] [Mass/volume] Nitrogen, Health System in Serum or Serum Plasma Calcium 8.9 Normal (applies Calcium, Total [facility] [Mass/volume] mg/dl to non-numeric Serum Health Syst em in Serum or results) Plasma Anion gap in 11.00 Normal (applies Anion Gap [facility] Serum or mmol/L to non-numeric Health System Plasma results) ID Date Data Source [id number] 09/18/2019 03:20:00 PM [facility] Obstetrical sonogram for datesPatient na me:??History:? state incidentalFindings:? Sonographic evaluat ion was performed in bothlongitudinal and transverse planes.?There is a singleintr auterine gestation.[place]-rump length corresponds to a gestational age of 8 we eks 2days.ALEXIS is04/27/2020. heart rate was 153 beats/min.Size is consistent wit h dates.The right ovary 3.0 x 1.8 x2.4.The left ovary 3.3 x 1.4 x 2.9.IMPRESSION:? Single intrauterine gestation with a gestationalageof GO.Electronically Amarilis d:Chalo Barr, at 15:59 ESTTe , [facility] , [phone] Name Value Range Interpretation Code Description Data Karishma rce(s) Supporting Document(s ) Procedure Vital Signs ID Date Data Source UNK Name Value Range Interpretation Code Description Data Source(s) Body temperature 98.8 [degF] 0 - 200 Normal (applies to 98.8 [degF ] [facility] non-numeric results) [facility] Body temperature 37.1 Sia 0 - 99.9 Normal (applies to 37.1 Sia [facility] non-numeric results) [facility] Diastolic blood 71 mm[Hg] 0 - 999 Normal (applies to 71 mm[Hg] M [facility] pressure non-numeric results) [facility] Systolic blood 120 mm[Hg] 0 - 999 Normal (applies to 120 mm[Hg] Mo [facility] pressure non-numeric results) [facility] Respiratory rate 16 0 - 999 Normal (applies to 16 [facility] non-numeric results) [facility] Heart rate 80 0 - 999 Normal (applies to 80 [facility] non-numeric results) [facility] Body temperature 98.1 [degF] 0 - 200 Normal (applies to 98.1 [degF ] [facility] non-numeric results) [facility] Body temperature 36.7 Sia 0 - 99.9 Normal (applies to 36.7 Sia [facility] non-numeric results) [facility] Diastolic blood 68 mm[Hg] 0 - 999 Normal (applies to 68 mm[Hg] M [facility] pressure non-numeric results) [facility] Systolic blood 123 mm[Hg] 0 - 999 Normal (applies to 123 mm[Hg] Mo [facility] pressure non-numeric results) [facility] Heart rate 69 0 - 999 Normal (applies to 69 [facility] non-numeric results) [facility] Body surface area 1.7 m2 1.7 m2 [facility] Derived from Health Syste m formula Body mass index 31.4 kg/m2 31.4 kg/m2 [facility] (BMI) [Ratio] Health Syst em Body weight 78.01 kg 78.01 kg [facility] Body height 157.48 cm 157.48 cm [facility] Respiratory rate 18 0 - 999 Above high normal 18 M [facility] Patient Treatment Plan of Care Planned Activity Planned Date Details Description Data Source (s) Docusate Sodium 100 MG 04/14/2020 03:36:38 [facility] Oral Capsule [Colace] PM EDT System ferrous sulfate 325 MG 04/14/2020 03:36:16 [facility] Oral Tablet PM EDT System Classic oral 10/01/2019 04:09:01 [facility] tablet PM EDT System Classic oral 10/01/2019 04:09:01 [facility] tablet PM EDT System
[2020-05-01 12:37] LABS: INR 1.04 (0.83-1.09); PROTHROMBIN TIME (PATIENT) 12.3 SEC (9.7-13.0)
--- NOTE | 2020-05-01 12:37 | HP ---
Past Medical History - Admission History Source: Patient Limitations to Obtaining History: No Limitations - Past Medical History ...: 1 ...Para: 0 ...EDC by Sono: 04/27/20 - Past Surgical History Past Surgical History: Yes: None Hx Myomectomy: No Hx Transabdominal Cerclage: No - Smoking History Smoking history: Never smoked Have you smoked in the past 12 months: No - Alcohol/Substance Use Hx Alcohol Use: No History of Substance Use: reports: None - Social History Usual Living Arrangement: Yes: With Spouse Do you think of yourself as: Straight/Heterosexual ADL: Independent History of Recent Travel: No Home Medications - Allergies Allergies/Adverse Reactions: Allergies Allergy/AdvReac Type Severity Reaction Status Date / Time No Known Allergies Allergy Verified 05/01/20 12:08 - Home Medications Home Medications: Ambulatory Orders Docusate Sodium [Docusate 100 mg] 100 mg PO DAILY 04/30/20 Ferrous Sulfate [Feosol] 325 mg PO BID 04/30/20 Vitamins (Sjr) - 1 tab PO DAILY 04/30/20 Review of Systems - Review of Systems Constitutional: reports: No Symptoms Eyes: reports: No Symptoms HENT: reports: No Symptoms Neck: reports: No Symptoms Cardiovascular: reports: No Symptoms Respiratory: reports: No Symptoms Gastrointestinal: reports: No Symptoms Genitourinary: reports: No Symptoms Breasts: reports: No Symptoms Reported Musculoskeletal: reports: No Symptoms Integumentary: reports: No Symptoms Neurological: reports: No Symptoms Endocrine: reports: No Symptoms Hematology/Lymphatic: reports: No Symptoms Psychiatric: reports: No Symptoms Physical Exam - Maternity Vital Signs: Vital Signs Temperature 97.9 F 05/01/20 12:00 Pulse Rate 62 05/01/20 12:00 Respiratory Rate 18 05/01/20 12:00 Blood Pressure 129/79 05/01/20 12:00 O2 Sat by Pulse Oximetry (%) 99 05/01/20 12:00 Constitutional: Yes: Well Nourished Eyes: Yes: WNL HENT: Yes: WNL Neck: Yes: WNL Cardiovascular: Yes: WNL Lungs: Clear to auscultation Breast(s): Yes: WNL - Abdominal Exam/OB Number of Fetuses: Single Presentation: Vertex Contractions: Yes Regularity: Irregular Intensity: Mild Monitor Mode: External Category: I Accelerations: Uniform Decelerations: None - Vaginal Exam/OB Vaginal Bleeding: No Speculum Exam: No Amniotic Membrane Status: Intact Presentation: Vertex/Position Station: -4 - Physical Exam Musculoskeletal: Yes: WNL Extremities: Yes: WNL Assessment/Plan iup at 40+ weeks PLAN INDUCTION OF LABOR
[2020-05-01 12:39] LABS: ACTIVATED PTT 29.4 SECONDS (25.2-36.5)
[2020-05-01] MEDS ORDERED: DINOPROSTONE 10 MG VAGINAL SUPPOSITORY VG ONE (12:40)
[2020-05-01 12:44] VITALS: BMI 32.1
[2020-05-01 12:57] LABS: BLOOD UREA NITROGEN 6.6 mg/dL (7-18); CALCIUM 8.2 mg/dL (8.5-10.1); CREATININE 0.6 mg/dL (0.55-1.3); POTASSIUM 3.8 mmol/L (3.5-5.1)
[2020-05-01 13:02] LABS: BASO % 0.4 % (0-2.0); EOS % 0.3 % (0-4.5); HEMATOCRIT 31.9 % (32.4-45.2); HEMOGLOBIN 10.5 GM/dL (10.7-15.3); LYMPH % 17.9 % (8-40); MCH 27.7 pg (25.7-33.7); MCHC 32.8 g/dl (32.0-36.0); MEAN CELL VOLUME 84.4 fl (80-96); MEAN PLT VOLUME 10.3 fl (7.5-11.1); MONO % 10.1 % (3.8-10.2); NEUT % 71.3 % (42.8-82.8); PLATELET COUNT 159 K/MM3 (134-434); RBC 3.78 M/mm3 (3.60-5.2); RDW 16.2 % (11.6-15.6)
[2020-05-01] MEDS: ELECTROLYTE-148 SOLN 1,000 ML IV SCH ×2 (13:15→23:00)
[2020-05-01] MEDS ORDERED: AMPICILLIN - 2 GM in SODIUM CHLORIDE 100 ML IVPB ONE (13:45)
[2020-05-01] MEDS ORDERED: AMPICILLIN - 1 GM in SODIUM CHLORIDE 100 ML IVPB SCH (17:45)
[2020-05-01] MEDS ORDERED: AMPICILLIN SODIUM 2 GM VIAL ONE (23:18)
[2020-05-02] MEDS ORDERED: AMPICILLIN SODIUM 1 GM VIAL ONE ×7 (03:39→23:33)
[2020-05-02] MEDS: ELECTROLYTE-148 SOLN 1,000 ML IV SCH ×2 (03:56→13:27)
[2020-05-02] MEDS: AMPICILLIN - 1 GM in SODIUM CHLORIDE 100 ML IVPB SCH ×5 (07:35→23:35)
[2020-05-02] MEDS ORDERED: OXYTOCIN 30 UNITS in 0.9% NS 30 UNIT/500 ML INFUS.BAG IVPB ONE (11:35)
--- NOTE | 2020-05-02 11:43 | PN ---
Progress Note (short form) - Note Progress Note: 30 year old at 40+w admitted for IOL s/p Cervidil x 1, had cat 2 tracing and cervidil removed Cat 1 tracing after Denies any complaints Patient evaluated at 9am - desires to ambulate for sometime before continuing with IOL VSS VE 08/23/2, soft, posterior Cat 1 tracing Irreg contractions Discussed Pitocin and balloon for IOL Patient agrees Cook catheter placed Pitocin to be started
[2020-05-02] MEDS ORDERED: OXYTOCIN 30 UNITS in 0.9% NS 30 UNIT/500 ML INFUS.BAG IVPB SCH (11:45)
[2020-05-02] MEDS ORDERED: FENTANYL/BUPIVACAINE/NS/PF - PCEA - 50 ML DISP.SYRIN EP ONE ×3 (15:13→20:00)
[2020-05-02] MEDS ORDERED: PCA PUMP NR ONE ×2 (15:13→20:00)
--- NOTE | 2020-05-02 15:14 | PN ---
Progress Note (short form) - Note Progress Note: IOL post dates GBS positive on Amp On Pitocin, cervical balloon came out Complains of painful contractions, desires epidural VSS VE 4/50/-2, soft, posterior 130s baseline, mod pam, occ lates Irreg contractions Will decrease Pitocin for now Left lateral position Epidural Close observation Reassess
--- NOTE | 2020-05-02 17:06 | PN ---
Progress Note (short form) - Note Progress Note: s/p epidural comfortable /-2, AROM clear fluid Cat 1 tracing Contractions q 4 min Continue with Pitocin
[2020-05-02] MEDS ORDERED: NALOXONE HCL 0.4 MG/ML VIAL IVPUSH PRN (18:11)
[2020-05-02] MEDS ORDERED: FENTANYL/BUPIVACAINE/NS/PF - PCEA - 50 ML DISP.SYRIN EP SCH (18:15)
[2020-05-02] MEDS ORDERED: SODIUM CHLORIDE 100 ML IVPB ONE ×2 (19:51→23:33)
--- NOTE | 2020-05-02 21:26 | PN ---
Progress Note (short form) - Note Progress Note: IOL Comfortable Cat 1 tracing Contractions q 2-3 min VE 5/60/-2 Minimal cervical change Possibility of section discussed with patient Continue with Pitocin for now Reassess for cervical changes
[2020-05-03] MEDS ORDERED: FENTANYL/BUPIVACAINE/NS/PF - PCEA - 50 ML DISP.SYRIN EP ONE (00:01)
--- NOTE | 2020-05-03 02:37 | PN ---
Progress Note (short form) - Note Progress Note: IOL 155-160 baseline, mod pam, occ late decels Contractions q 2 min VE 5-6/60/-2, OP No cervical change after many hours Patient has tried multiple position changes without success Finding discussed with patient and Recommended delivery at this time At this time, they refuse to consent for a section Risks for doing so discussed with patient They request time to discuss and decide
[2020-05-03] MEDS ORDERED: LIDO 2%/EPI 1:200000 PRESRVFRE (20 ML SDVIAL) ONE (03:58)
[2020-05-03] MEDS ORDERED: OXYTOCIN 20 UNITS in 0.9% NS 20 UNIT/1,000 ML INFUS.BAG IV ONE ×2 (03:58→07:25)
[2020-05-03] MEDS ORDERED: SODIUM BICARBONATE 8.4% 50 MEQ/50 ML VIAL ONE (03:58)
[2020-05-03] MEDS ORDERED: ceFAZolin SODIUM 1 GM VIAL ONE (04:12)
[2020-05-03] MEDS ORDERED: OXYTOCIN 10 UNITS/ML VIAL ONE (04:19)
[2020-05-03] MEDS ORDERED: PHENYLEPHRINE HCL 10 MG/1 ML SINGLE DOSE VIAL ONE (04:33)
[2020-05-03] MEDS ORDERED: METHYLERGONOVINE MALEATE 0.2 MG/1 ML AMP IM ONE (05:00)
[2020-05-03] MEDS ORDERED: oxyCODONE HCL 5 MG TABLET PO PRN (05:00)
--- NOTE | 2020-05-03 05:00 | OP ---
Operative Note - Note: Operative Date: 05/03/20 Pre-Operative Diagnosis: Arrest of dilation, cat 2 tracing Operation: primary section Findings: baby boy 9/9 LOP position normal ovaries and tubes Post-Operative Diagnosis: Same as Pre-op Surgeon: Maria C Melchor Ticket Machine Operator: Kathi Becker Anesthesiologist/MAINTENANCE TEAM MEMBER: Ari Lutz Anesthesia: Epidural Estimated Blood Loss (mls): 700 Blood Volume Replaced (mls): 700
[2020-05-03] MEDS ORDERED: ONDANSETRON 4 MG/2 ML VIAL IVPUSH PRN (05:18)
[2020-05-03] MEDS ORDERED: IBUPROFEN 800 MG/8 ML IJ IVPB ONE (07:25)
[2020-05-03] MEDS: IBUPROFEN 800 MG/8 ML IJ IVPB PRN ×2 (07:36→16:32)
[2020-05-03] MEDS ORDERED: OXYTOCIN 20 UNITS in 0.9% NS 20 UNIT/1,000 ML INFUS.BAG IV SCH (09:00)
[2020-05-03] MEDS: ENOXAPARIN NA (PORCINE) 40 MG/0.4 ML DISP.SYRIN SQ SCH (14:02)
[2020-05-04] MEDS ORDERED: BISACODYL 10 MG SUPP.RECT RC PRN (05:00)
[2020-05-04 08:21] LABS: BASO % 0.3 % (0-2.0); EOS % 0.1 % (0-4.5); HEMATOCRIT 29.6 % (32.4-45.2); HEMOGLOBIN 9.6 GM/dL (10.7-15.3); LYMPH % 9.8 % (8-40); MCH 27.6 pg (25.7-33.7); MCHC 32.3 g/dl (32.0-36.0); MEAN CELL VOLUME 85.6 fl (80-96); MEAN PLT VOLUME 10.1 fl (7.5-11.1); MONO % 8.1 % (3.8-10.2); NEUT % 81.7 % (42.8-82.8); PLATELET COUNT 164 K/MM3 (134-434); RBC 3.46 M/mm3 (3.60-5.2); RDW 18.2 % (11.6-15.6); WHITE BLOOD COUNT 17.4 K/mm3 (4.0-10.0)
[2020-05-04] MEDS: IBUPROFEN 600 MG TABLET (FP) PO PRN ×3 (09:48→21:53)
[2020-05-04] MEDS: SIMETHICONE 80 MG TAB.CHEW (FP) PO PRN ×3 (09:49→21:54)
[2020-05-04] MEDS: ENOXAPARIN NA (PORCINE) 40 MG/0.4 ML DISP.SYRIN SQ SCH (09:49)
--- NOTE | 2020-05-04 14:50 | PN ---
Post Progress Note Post Day: 1 Type of Delivery: Primary C/S Vital Signs: Vital Signs Temperature 99.1 F 05/04/20 09:00 Pulse Rate 69 05/04/20 09:00 Respiratory Rate 20 05/04/20 09:00 Blood Pressure 130/70 05/04/20 09:00 O2 Sat by Pulse Oximetry (%) 100 05/03/20 08:40 Breast Exam: Yes: Soft Uterus: Yes: Fundus Firm, Fundus below umbilicus, Non-tender Incision: Yes: Sutures intact Abdomen/GI: Yes: Abdomen soft Lochia: Yes: Rubra Lochia, amount: Small Extremities: Yes: Calves non-tender Activity: Ambulating - Labs Labs: CBC WBC 17.4 K/mm3 (4.0-10.0) H 05/04/20 07:56 RBC 3.46 M/mm3 (3.60-5.2) L 05/04/20 07:56 Hgb 9.6 GM/dL (10.7-15.3) L 05/04/20 07:56 Hct 29.6 % (32.4-45.2) L 05/04/20 07:56 MCV 85.6 fl (80-96) 05/04/20 07:56 MCH 27.6 pg (25.7-33.7) 05/04/20 07:56 MCHC 32.3 g/dl (32.0-36.0) 05/04/20 07:56 RDW 18.2 % (11.6-15.6) H 05/04/20 07:56 Plt Count 164 K/MM3 (134-434) 05/04/20 07:56 MPV 10.1 fl (7.5-11.1) 05/04/20 07:56 Absolute Neuts (auto) 14.2 K/mm3 (1.5-8.0) H 05/04/20 07:56 Neutrophils % 81.7 % (42.8-82.8) 05/04/20 07:56 Lymphocytes % 9.8 % (8-40) D 05/04/20 07:56 Monocytes % 8.1 % (3.8-10.2) 05/04/20 07:56 Eosinophils % 0.1 % (0-4.5) 05/04/20 07:56 Basophils % 0.3 % (0-2.0) 05/04/20 07:56 Nucleated RBC % 0 % (0-0) 05/04/20 07:56 Assessment/Plan S/P delivery, pod #1, with no complaints Continue management
[2020-05-04] MEDS ORDERED: DIPHTH,PERTUSS(ACELL),TET 0.5 ML DISP.SYRIN IM ONE (17:00)
[2020-05-05] MEDS: IBUPROFEN 600 MG TABLET (FP) PO PRN ×4 (02:33→20:31)
[2020-05-05] MEDS: SIMETHICONE 80 MG TAB.CHEW (FP) PO PRN ×4 (02:33→20:32)
[2020-05-05] MEDS: ENOXAPARIN NA (PORCINE) 40 MG/0.4 ML DISP.SYRIN SQ SCH (09:25)
--- NOTE | 2020-05-05 11:40 | PN ---
Progress Note (short form) - Note Progress Note: PPD#1: patient comfortable; s/p POD#2 for FTP no BM yet abdomen soft; incision healing well; no erythema lochia normal I/P: doing well; requesting circumcision home in am
[2020-05-06] MEDS: IBUPROFEN 600 MG TABLET (FP) PO PRN ×3 (04:56→16:33)
[2020-05-06 08:10] LABS: BASO % 0.3 % (0-2.0); EOS % 1.2 % (0-4.5); HEMATOCRIT 29.3 % (32.4-45.2); HEMOGLOBIN 9.5 GM/dL (10.7-15.3); LYMPH % 18.2 % (8-40); MCH 27.7 pg (25.7-33.7); MCHC 32.4 g/dl (32.0-36.0); MEAN CELL VOLUME 85.4 fl (80-96); MEAN PLT VOLUME 9.3 fl (7.5-11.1); MONO % 7.6 % (3.8-10.2); NEUT % 72.7 % (42.8-82.8); PLATELET COUNT 216 K/MM3 (134-434); RBC 3.43 M/mm3 (3.60-5.2); RDW 18.5 % (11.6-15.6); WHITE BLOOD COUNT 11.3 K/mm3 (4.0-10.0)
[2020-05-06 09:41] VITALS: TEMP 97.9
[2020-05-06] MEDS: ENOXAPARIN NA (PORCINE) 40 MG/0.4 ML DISP.SYRIN SQ SCH (10:27)
[2020-05-06 11:21] VITALS: BP 131/76; PULSE 75
[2020-05-06] MEDS: SIMETHICONE 80 MG TAB.CHEW (FP) PO PRN ×2 (12:04→16:34)
[2020-05-06 12:21] LABS: ALBUMIN 2.8 g/dl (3.4-5.0); BILIRUBIN,TOTAL 0.4 mg/dL (0.2-1); BLOOD UREA NITROGEN 4.7 mg/dL (7-18); CALCIUM 8.2 mg/dL (8.5-10.1); CREATININE 0.5 mg/dL (0.55-1.3); POTASSIUM 3.8 mmol/L (3.5-5.1); TOT PROT 6.4 g/dl (6.4-8.2); URIC ACID 3.3 mg/dL (2.6-7.2)
--- NOTE | 2020-05-06 12:58 | DS ---
Physical Exam-MANAGER MORTGAGE Vital Signs: Vital Signs Temperature 97.9 F 05/06/20 09:41 Pulse Rate 75 05/06/20 11:21 Respiratory Rate 18 05/06/20 11:21 Blood Pressure 131/76 05/06/20 11:21 O2 Sat by Pulse Oximetry (%) 100 05/03/20 08:40 Labs: CBC, BMP 05/06/20 07:50 05/06/20 11:36 Delivery - Delivery Type of Anesthesia: Epidural Episiotomy/Laceration: None EBL (cc): 700 Delivery, Single - Stages of Labor Date 1st Stage Initiatied: 05/02/20 Date of Delivery: 05/03/20 Time of Delivery: 04:20 Time Placenta Delivered: 04:21 - Condition of Cylinder Checker/It Application Development Manager Present: Yes Name: Nedra Billy Infant Gender: Male Weight: 3.435 kg Position: OP Total Hours ROM (Hrs/Mins): 12 hours 18 miin - 1 Minute Total Score: 9 5 Minutes Total Score: 9 - Feeding Plan Initial Plan: Elected not to breastfeed exclusively throughout hospitalization Remarks - Remarks Remarks: pt. without complaints. denies FERRARO, visual disturbances epig pain. vss occas BP elev w Nl values in between abd: soft, NT, ND, inc c/d/i. +BS ve: min lochia ext: no calf tenderness b/l. 1+ edema b/l a/p pod3 s/p pt. doing well tolerating diet and ambulating without difficulty BP mild elev asymptomatic labs ok, except anemia d/c to home with hematinics, preeclampsia precautions f/u w Tuesday for BP check and wound check Discharge Summary Problems reviewed: Yes Reason For Visit: INDUCTION OF LABOR Procedures: Principal: section Hospital Course: admitted for post edc iol underwent primary delivery uncomplicated. hospital course signif for occas mild BP elev. asymptomatic and labs ok. plan for d/c to home w precautions, wound care instructions and close f/u as out pt Condition: Good - Instructions Diet, Activity, Other Instructions: regular diet. activity as tolerated, but avoid strenuous activity, heavy lifting and intercourse. wash wound with warm water and soap at least once daily, rinse well, pat dry and leave open to air. Referrals: Edelmira Webster MD [Staff Physician] - 05/12/20 Disposition: HOME - Home Medications Comprehensive Discharge Medication List: Ambulatory Orders Docusate Sodium [Docusate 100 mg] 100 mg PO DAILY 04/30/20 Ferrous Sulfate [Feosol] 325 mg PO BID 04/30/20 Vitamins (Sjr) - 1 tab PO DAILY 04/30/20 Ibuprofen [Motrin -] 600 mg PO Q6H PRN #50 tablet 05/06/20
--- NOTE | 2020-05-08 16:39 | OP ---
DATE OF OPERATION: 05/03/2020 PREOPERATIVE DIAGNOSIS: Arrest of dilation, category 2 tracing. OPERATION: Primary section. FINDINGS: Baby boy Apgars 9, 9; left occiput posterior position. Normal ovaries and tubes. POSTOPERATIVE DIAGNOSIS: Arrest of dilation, category 2 tracing. SURGEON: Maria C Melchor MD RESEARCH SCIENTIST: Kathi Becker MD ANESTHESIOLOGIST: Ari Lutz DO ANESTHESIA: Epidural. ESTIMATED BLOOD LOSS: Less than 100 mL. COMPLICATIONS: None. PROCEDURE: An informed consent was taken from the patient. The patient was then taken to the operating room where epidural anesthesia was found to be adequate. The patient was placed in the dorsal supine position with a leftward tilt. The patient was then prepped and draped in a normal sterile fashion. A Pfannenstiel skin incision was performed with the scalpel. The incision was then carried down to the fascia with the Bovie. The fascia was then incised near the midline with the Bovie and extended bilaterally bluntly. Two straight Antonella clamps were placed on the lower portion of the fascia and the underlying rectus muscle was dissected bluntly and sharply. The same procedure was performed in the upper portion of the fascia. The rectus muscle was then at the midline and blunt entry into the peritoneal cavity was performed. The lower uterine segment was identified after placing the bladder blade. A transverse uterine incision was performed with the scalpel and extended bilaterally bluntly. The infant was then delivered atraumatically. The cord was clamped and cut and the baby was handed to the awaiting power marketer. A sample of the cord blood was taken and the placenta was then delivered manually. The uterus was then exteriorized and the inside of the uterus was cleared of all clots and membranes with dry laparotomy sponges. T-clamp and Allis clamps were placed in the uterine incision to obtain hemostasis. The uterus was then repaired in one layer using 0 Vicryl suture in a running locked fashion. Additional [id number] sutures were placed to obtain hemostasis. The uterus was then returned to the abdominal cavity. The gutters were cleared of all clots with moist laparotomy sponges. The incision was then reinspected and found to be hemostatic. The peritoneum was then identified. The peritoneum was repaired with 2-0 chromic suture in a running fashion. The muscle was then approximated also with 2-0 chromic suture with a single suture. The fascia was then identified. The fascia was then repaired with 0 Vicryl in a running fashion. Irrigation of the subcutaneous tissue was performed. The subcutaneous tissue was approximated with single sutures with plain gut suture. The skin was then closed with 3-0 Vicryl suture in subcuticular fashion. The patient tolerated the procedure well. The count was correct x2. The patient was then transferred to the recovery room in stable condition. MD CARLOS LOPEZ/[id number]
--- NOTE | 2020-05-09 18:09 | PATH ---
Surgical Pathology Report Patient Name: MARY JO LONGO Med. Rec. #: [id number] /Age/Gender: 1990 (Age: 30) / F Account: [id number] Location: [facility] OBS/WARPER TENDER Taken: 05/03/2020 Received: 05/05/2020 Reported: 05/09/2020 Physicians: Maria C Melchor M.D. Specimen(s) Received PLACENTA Clinical History , failure to progress, nonreassuring heart tracing Final Diagnosis PLACENTA: THIRD TRIMESTER PLACENTA WITH NONSPECIFIC CHRONIC DECIDUITIS, INCREASED SYNCYTIAL KNOTS, AND PERIVILLOUS FIBRIN DEPOSITION. TRIVASCULAR CORD. MEMBRANES WITH FOCAL ACUTE CHORIOAMNIONITIS. Electronically Signed Gene Dior M.D. Gross Description The specimen is received fresh labeled placenta and is a 519 gram, 18.5 x 15.0 x 2.9 cm. placenta with attached membranes and umbilical cord. The attached membranes are bell, translucent with focal opacities and insert marginally. The umbilical cord measures 40 cm. in length and averages 1.1 cm. in diameter. The cord inserts eccentrically, 4 cm. to the nearest margin. No true knots or strictures are identified. Cut surface of the umbilical cord reveals 3 vessels. The surface is vargas-blue with minimal fibrin deposition and appropriate caliber vessels. The maternal surface is red-brown with focal defects. Sectioning reveals red-brown, spongy parenchyma. No lesions are identified. Certified Income Tax Preparer sections are submitted in three cassettes as follows: 1- membrane rolls and umbilical cord; 2-3- full thickness sections of placenta. 05/07/2020 [facility]05/07/2020
== END 2020-05-06 18:43 | disposition home or self-care (01) | DRG 788 ==
LOC: JLDR 11:20 → J3W 05-03 09:00
PROVIDERS: ADMIT Obstetrics & Gynecology; ATTEND Obstetrics & Gynecology
PROC: 3E0P7VZ Introduction of Hormone into Female Reproductive, Via Natural or Artificial Opening (ICD-10-PCS; 2020-05-01)
PROC: 0U7C7ZZ Dilation of Cervix, Via Natural or Artificial Opening (ICD-10-PCS; 2020-05-02)
PROC: 10907ZC Drainage of Amniotic Fluid, Therapeutic from Products of Conception, Via Natural or Artificial Opening (ICD-10-PCS; 2020-05-02)
PROC: 10D00Z1 Extraction of Products of Conception, Low, Open Approach (ICD-10-PCS; principal; 2020-05-03)
DX: O82 Encounter for cesarean delivery without indication (principal); O76 Abnormality in fetal heart rate and rhythm complicating labor and delivery; O62.1 Secondary uterine inertia; O48.0 Post-term pregnancy; O99.824 Streptococcus B carrier state complicating childbirth; O99.02 Anemia complicating childbirth; D64.9 Anemia, unspecified; Z3A.40 40 weeks gestation of pregnancy; Z37.0 Single live birth
CPT/HCPCS: 36415; 80048; 80053; 84550; 85025; 85610; 85730; 86780; 86850; 86900; 86901; 87389; 88307-TC; 90715